=== PATIENT | male | born 1955 | race Native Hawaiian/Other Pacific Islander ===

== ENCOUNTER 2022-05-29 08:46 | Outpatient (CLI) | payer BC | END 2022-05-29 19:12 | disposition home or self-care (01) | LOC: RAD 08:46 | PROVIDERS: ATTEND Internal Medicine | DX: R06.02 Shortness of breath (principal); Z86.16 Personal history of COVID-19; Z09 Encounter for follow-up examination after completed treatment for conditions other than malignant neoplasm | CPT/HCPCS: 36415; 82565; 84520; Q9963 ==

== ENCOUNTER 2022-08-20 13:31 | Outpatient (CLI) | payer BC ==
[2022-08-20 13:54] LABS: PLATELET COUNT 204 K/uL (142-355)
[2022-08-20 13:56] LABS: POTASSIUM 4.2 mmol/L (3.6-5.2)
== END 2022-08-20 20:50 | disposition home or self-care (01) ==
LOC: LABW 13:31
PROVIDERS: ATTEND Internal Medicine Cardiovascular Disease
DX: I47.20 Ventricular tachycardia, unspecified (principal)
CPT/HCPCS: 36415; 80048; 85027; 85610